=== PATIENT | male | born 1955 | race Native Hawaiian/Other Pacific Islander ===

== ENCOUNTER 2019-03-30 14:05 | Emergency (ER) | payer OTHER, BC ==
[~2019-03-30] VITALS: Ht 185.4 cm; Wt 99.8 kg
[2019-03-30 14:12] VITALS: TEMP 98.6
[2019-03-30] MEDS ORDERED: TIROSINT125 MCG PO (14:37)
[2019-03-30] MEDS ORDERED: METFORMIN ER1000 MG PO (14:37)
[2019-03-30] MEDS ORDERED: CLOPIDOGREL75 MG PO (14:37)
[2019-03-30] MEDS ORDERED: SIMV40TA57 (14:38)
[2019-03-30] MEDS ORDERED: ASA LOW STR81 MG PO (14:39)
[2019-03-30] MEDS ORDERED: HYDRALAZINE10 MG PO (14:39)
[2019-03-30] MEDS ORDERED: RAMI2.5C2 PO (14:39)
[2019-03-30] MEDS ORDERED: KAPSPARGO SPRIN50 MG PO (14:39)
[2019-03-30 15:08] LABS: PLATELET COUNT 309 K/uL (142-355)
[2019-03-30 15:13] LABS: POTASSIUM 3.6 mmol/L (3.6-5.2)
[2019-03-30 15:26] LABS: PARTIAL THROMBOPLASTIN TIME 23.4 SECONDS (24.5-33.6)
[2019-03-30 16:50] VITALS: BP 168/90
== END 2019-03-30 17:24 | disposition short-term general hospital (02) ==
LOC: ED 14:05
PROVIDERS: Emergency Medicine
DX: R04.2 Hemoptysis (principal); Z79.02 Long term (current) use of antithrombotics/antiplatelets
CPT/HCPCS: 36415; 80053; 85027; 85610; 85730; 99284; Q9963

== ENCOUNTER 2019-03-30 17:26 | Outpatient (CLI) | payer OTHER, BC ==
[~2019-03-30 17:26] MED LIST: ASA LOW STR81 MG PO; CLOPIDOGREL75 MG PO; HYDRALAZINE10 MG PO; KAPSPARGO SPRIN50 MG PO; METFORMIN ER1000 MG PO; RAMI2.5C2 PO; SIMV40TA57; TIROSINT125 MCG PO
== END 2019-03-30 18:47 | disposition short-term general hospital (02) ==
LOC: AMB 17:26
DX: R04.2 Hemoptysis (principal)
CPT/HCPCS: A0425; A0429

== ENCOUNTER 2019-06-21 09:35 | Outpatient (CLI) | payer OTHER, BC | END 2019-06-21 20:34 | disposition home or self-care (01) | LOC: CT 09:35 | DX: R91.8 Other nonspecific abnormal finding of lung field (principal) ==

== ENCOUNTER 2019-10-13 10:25 | Outpatient (CLI) | payer OTHER, BC | END 2019-10-13 20:54 | disposition home or self-care (01) | LOC: RAD 10:25 | DX: J40 Bronchitis, not specified as acute or chronic (principal); R05 Cough ==

== ENCOUNTER 2020-01-05 09:01 | Outpatient (CLI) | payer OTHER, BC | END 2020-01-05 22:53 | disposition home or self-care (01) | LOC: CT 09:01 | DX: R04.0 Epistaxis (principal); R04.2 Hemoptysis ==

== ENCOUNTER 2022-04-17 09:04 | Outpatient (CLI) | payer BC | END 2022-04-17 19:28 | disposition home or self-care (01) | LOC: CT 09:04 | PROVIDERS: ATTEND Specialist | DX: R31.9 Hematuria, unspecified (principal) ==

== ENCOUNTER 2023-01-20 10:18 | Outpatient (CLI) | payer BC ==
[2023-01-20 10:39] LABS: POTASSIUM 4.3 mmol/L (3.6-5.2)
== END 2023-01-20 18:56 | disposition home or self-care (01) ==
LOC: LABW 10:18
PROVIDERS: ATTEND Nurse Practitioner
DX: E87.5 Hyperkalemia (principal)
CPT/HCPCS: 36415; 80048